=== PATIENT | male | born 1990 | race Caucasian/White ===

== ENCOUNTER 2016-07-27 23:11 | Emergency (ER) | payer SELFPAY ==
[~2016-07-27] VITALS: Ht 175.3 cm; Wt 63.5 kg
[~2016-07-27 23:11] MED LIST: AC500T; AMOX500C2 PO; BENADRYL; CEPH-38 PO; DEXT20TA8; DIPH50CA33; HYDR-1231 PO; HYDR1TAB PO; METH4TAB PO; NAPR500T PO; NAPR550T PO; PRD20T PO; TRM50T PO
[2016-07-27] MEDS ORDERED: BENZ-13 PO (23:56)
[2016-07-27] MEDS ORDERED: OSLT75C PO (23:56)
--- NOTE | 2016-07-27 23:56 | ED Cough/URI ---
General Chief Complaint: Cough/Cold/Flu Symptoms Stated Complaint: FEVER,VOMITING,COUGH Nursing Triage Note: c/o cough and congestion with fever x 2 days Source: patient History of Present Illness Time seen by provider: 23:25 Initial Comments PT STATES HE HAS BEEN SICK SINCE YESTERDAY HAS HAD FEVER OF 102.9 C/O NON-PRODUCTIVE COUGH, AND CLEAR NASAL DRAINAGE C/O HEADACHE C/O BODY ACHES HAS VOMITED X 2 SECONDARY TO COUGHING AND GAGGING TOOK OTC COLD/FLU MEDICATION AND 800 MG OF IBUPROFEN JUST PRIOR TO ARRIVAL AND STATES IT HAS HELPED MULTIPLE SICK CONTACTS WITH SAME--STATES KIDS ALL HAVE "BRONCHITIS OR PNEUMONIA " AND URI SYMPTOMS PCP: [facility] Allergies and Home Medications Allergies Coded Allergies: No Known Allergies (Unverified Allergy, Mild, 10/30/08) No Known Drug Allergies (Unverified Allergy, Mild, 11/09/08) Home Medications Benzonatate 100 Mg Capsule #30 1-2 TAB PO TID Prescribed by: NATASHA CASTILLO on 07/27/166 Dextroamphetamine/Amphetamine 20 Mg Tablet #60 (Reported) Naproxen 500 Mg Tablet #20 500 MG PO BID PRN PRN PAIN Prescribed by: SILVIA PANDEY on 03/21/16 1950 Oseltamivir Phosphate 75 Mg Cap #10 75 MG PO BID Prescribed by: NATASHA CASTILLO on 07/27/162355 Constitutional: see HPI fever malaise EENTM: nose congestion see HPI Respiratory: see HPI coughNo short of breath, No wheezing Cardiovascular: no symptoms reported Gastrointestinal: see HPINo abdominal pain, No diarrhea, No nausea, vomiting Genitourinary: no symptoms reported Musculoskeletal: see HPI (BODY ACHES) Skin: no symptoms reported Psychiatric/Neurological: See HPI Headache Hematologic/Lymphatic: No Symptoms Reported Immunological/Allergic: no symptoms reported Past Zvgimvj-Geprcm-Vzcxfx Hx Patient Social History Alcohol Use: Occasionally Uses Recreational Drug Use: No Smoking Status: Current Everyday Smoker (1 PPD) Type Used: Cigarettes Recent Foreign Travel: No Contact w/Someone Who Travel: No Recent Infectious Disease Expo: No Recent Hopitalizations: No Physical Abuse Screen: No Sexual Abuse: No Immunizations Up To Date Tetanus Booster (TDap): Unknown Date of Influenza Vaccine: May 24, 2013 Seasonal Allergies Seasonal Allergies: No Surgeries HX Surgeries: No Respiratory Hx Respiratory Disorders: No Cardiovascular Hx Cardiac Disorders: No Neurological Hx Neurological Disorders: No Reproductive System Hx Reproductive Disorders: No Sexually Transmitted Disease: No HIV/AIDS: No Genitourinary Hx Genitourinary Disorders: No Gastrointestinal Hx Gastrointestinal Disorders: No Musculoskeletal Hx Musculoskeletal Disorders: Yes Musculoskeletal Disorders: Chronic Back Pain Endocrine Hx Endocrine Disorders: No HEENT HX ENT Disorders: No Cancer Hx Cancer: No Psychosocial Hx Psychiatric Problems: Yes (WAS ON CELEXA, BUT RAN OUT 2 WEEKS AGO, PER PT ON 07/27/16) Behavioral Health Disorders: Depression Integumentary HX Skin/Integumentary Disorder: No Blood Transfusions Hx Blood Disorders: No Adverse Reaction to a Blood Tr: No Physical Exam Vital Signs Vital Sign - Last 12Hours 07/27/16 07/27/16 23:21 23:30 Temp 98.8 Pulse 110 Resp 16 B/P 109/77 Pulse Ox 96 O2 Delivery Room Air Capillary Refill : Less Than 3 Seconds General Appearance: other (LOOKS MILDLY ILL) thin HEENT: PERRL/EOMI TMs normal pharynx normal other (NASAL MUCOSAL CONGESTION AND CLEAR RHINORRHEA. 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 no motor/sensory deficits alert normal mood/affect oriented x 3 Skin: normal color warm/dryNo rash, tattoos/piercings (MUJLTIPLE TATTOOS) Progress/Results/Core Measures Results/Orders Micro Results Microbiology 07/27/16 Influenza Types A,B Antigen (RADHA) - Final, Complete My Orders Orders-NATASHA CASTILLO DO Influenza A And B Antigens (07/27/16 23:29) Vital Signs/I&O Vital Sign - Last 12Hours 07/27/16 07/27/16 07/28/16 23:21 23:30 00:06 Temp 98.8 Pulse 110 83 Resp 16 20 B/P 109/77 Pulse Ox 96 95 O2 Delivery Room Air Blood Pressure Mean: 88 Departure Impression Impression: Primary Impression: Influenza A Disposition: 01 HOME, SELF-CARE Condition: Improved Departure-Patient Inst. [facility]) Primary Care Physician Patient Instructions: Flu, Adult (DC) Add. Discharge Instructions: NIRMALA BAGLEY FOR COUGH TYLENOL 1 GRAM /MOTRIN 800 MG 4 TIMES A DAY NEEDED FOR PAIN OR FEVER FOLLOW UP WITH DR OF CHOICE IN 4-5 DAYS IF NO BETTER All discharge instructions reviewed with patient and/or family. Voiced understanding. Scripts Benzonatate (Tessalon Perle)100 Mg Capsule1-2 Tab PO TID Cough #30 CAP Prov:NATASHA CASTILLO DO 07/27/16 Oseltamivir Phosphate (Tamiflu)75 Mg Cap75 Mg PO BID #10 CAP Prov:NATASHA CASTILLO DO 07/27/16 Work/School Note: Work Release Form Date Seen in the Emergency Department: Jul 27, 2016 Return to Work: Jul 30, 2016 NATASHA CASTILLO DO Jul 27, 2016 23:56
[2016-07-28 00:06] VITALS: BP 112/79
== END 2016-07-28 00:07 | disposition home or self-care (01) ==
LOC: EDUNIT# 23:11 → ER 23:15
DX: J09.X2 Influenza due to identified novel influenza A virus with other respiratory manifestations (principal); F17.210 Nicotine dependence, cigarettes, uncomplicated
CPT/HCPCS: 87804; 99282

== ENCOUNTER 2016-10-26 03:17 | Emergency (ER) | payer SELFPAY ==
[~2016-10-26] VITALS: Ht 175.3 cm; Wt 63.5 kg
[~2016-10-26 03:17] MED LIST changes: +BENZ-13 PO; +OSLT75C PO
[2016-10-26] MEDS ORDERED: ibuprofen (03:31)
[2016-10-26] MEDS ORDERED: RX-NAPROXEN (NAPROSYN) 250 MG TAB PPK#4 PO STA (03:32)
[2016-10-26] MEDS ORDERED: LIDO15SO2 MM (03:35)
[2016-10-26] MEDS ORDERED: NAPR500T3 PO (03:35)
[2016-10-26] MEDS ORDERED: AMOX-358 PO (03:35)
--- NOTE | 2016-10-26 03:35 | ED EENT ---
History of Present Illness General Chief Complaint: Dental Problems/Pain Stated Complaint: DENTAL PAIN Nursing Triage Note: pt c/o left lower dental pain x 2 days, severe tonight. Source: patient History of Present Illness Time seen by provider: 03:25 Initial Comments C/O DENTAL PAIN FOR THE PAST COUPLE OF DAYS, WORSE TONIGHT PT HAS CHRONIC DENTAL PROBLEMS, HAS NOT SEEN A DENTIST IN YEARS DID GO TO [facility] A FEW YEARS AGO FOR THIS PROBLEM AND WAS REFERRED TO AN ORAL SURGEON TO HAVE TEETH REMOVED, BUT PT NEVER WENT DUE TO FINANCES. NO FEVER NO SWELLING OF FACE/JAW PCP; [facility] Allergies and Home Medications Allergies Coded Allergies: NKANo Known Allergies (Unverified Allergy, Mild, 10/30/08) No Known Drug Allergies (Unverified , 11/09/08) Home Medications Amoxicillin/Potassium Clav 1 Each Tablet, 1 EACH PO BID, #20 Prescribed by: NATASHA CASTILLO on 10/26/16 0335 Lidocaine HCl 15 Ml Solution, 0 MM Q 1-2 HOURS, #50 Prescribed by: NATASHA CASTILLO on 10/26/16 0335 Naproxen 500 Mg Tablet, 500 MG PO BID, #20 Prescribed by: NATASHA CASTILLO on 10/26/16 0335 [ibuprofen] , (Reported) Review of Systems Constitutional: no symptoms reported Eyes: No Symptoms Reported Ears: No Symptoms Reported Nose: no symptoms reported Mouth: see HPI Throat: no symptoms reported Respiratory: no symptoms reported Cardiovascular: no symptoms reported Gastrointestinal: no symptoms reported Musculoskeletal: no symptoms reported Skin: no symptoms reported Neurological: No Symptoms Reported Hematologic/Lymphatic: No Symptoms Reported Past Ppbtjan-Jjpcfu-Qxgotu Hx Patient Social History Alcohol Use: Occasionally Uses Recreational Drug Use: No Smoking Status: Current Everyday Smoker (1 PPD) Type Used: Cigarettes Recent Foreign Travel: No Contact w/Someone Who Travel: No Recent Infectious Disease Expo: No Recent Hopitalizations: No Immunizations Up To Date Tetanus Booster (TDap): Unknown Date of Influenza Vaccine: May 24, 2013 Seasonal Allergies Seasonal Allergies: No Surgeries HX Surgeries: No Respiratory Hx Respiratory Disorders: No Cardiovascular Hx Cardiac Disorders: No Neurological Hx Neurological Disorders: No Reproductive System Hx Reproductive Disorders: No Sexually Transmitted Disease: No HIV/AIDS: No Genitourinary Hx Genitourinary Disorders: No Gastrointestinal Hx Gastrointestinal Disorders: No Musculoskeletal Hx Musculoskeletal Disorders: Yes Musculoskeletal Disorders: Chronic Back Pain Endocrine Hx Endocrine Disorders: No HEENT HX ENT Disorders: Yes (DENTAL CARIES/ABSCESSES, CHRONIC DENTAL PAIN ) Cancer Hx Cancer: No Psychosocial Hx Psychiatric Problems: Yes Behavioral Health Disorders: Depression Integumentary HX Skin/Integumentary Disorder: No Blood Transfusions Hx Blood Disorders: No Adverse Reaction to a Blood Tr: No Physical Exam Vital Signs Vital Sign - Last 12Hours 10/26/16 03:24 Temp 96.9 Pulse 73 Resp 16 B/P (MAP) 160/105 General Appearance: WD/WN, no apparent distress, other (HOLDING LEFT JAW AREA) Eyes: bilateral eye EOMI, bilateral eye PERRL, bilateral eye normal inspection , bilateral eye other (GLASSES) Ears: bilateral ear TM normal Nose: normal inspection Mouth/Throat: other (EXTENSIVE DENTAL DECAY--MANY TEETH, ESPECIALLY ALL MOLARS , DECAYED DOWN TO GUMS--LEFT LOWER MOLARS WITH MODERATE SURROUNDING GUM TISSUE INFLAMED, SWOLLED AND VERY TENDER. NO MANDIBULAR SWELLING. 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, no motor/sensory deficits, alert, oriented x 3 Skin: normal color, warm/dry Progress/Results/Core Measures Results/Orders My Orders Orders - NATASHA CASTILLO DO Amoxicillin/Clavulanate Tablet (Augmenti (10/26/16 07:00) Rx-Naproxen (Rx-Naprosyn) (10/26/16 03:32) Lidocaine 2% Viscous 15 Ml (Xylocaine Vi (10/26/16 03:45) Vital Signs/I&O Vital Sign - Last 12Hours 10/26/16 03:24 Temp 96.9 Pulse 73 Resp 16 B/P (MAP) 160/105 Blood Pressure Mean: 123 Departure Impression Impression: Primary Impression: Dental caries Additional Impression: Dental abscess Disposition: 01 HOME, SELF-CARE Condition: Stable Departure-Patient Inst. Referrals: [facility] (PCP/Family) Primary Care Physician Patient Instructions: Tooth Decay, Adult (DC), Tooth Abscess (DC) Add. Discharge Instructions: FREQUENT SALT WATER AND LISTERINE SWISHES FOLLOW UP WITH [facility] THIS WEEK FOR FURTHER CARE All discharge instructions reviewed with patient and/or family. Voiced understanding. Scripts Naproxen (Naproxen) 500 Mg Tablet 500 MG PO BID, #20 TAB Prov: NATASHA CASTILLO DO 10/26/16 Lidocaine HCl (Lidocaine HCl Viscous) 15 Ml Solution 0 MM Q 1-2 HOURS for Pain, #50 EA Prov: NATASHA CASTILLO DO 10/26/16 Amoxicillin/Potassium Clav (Augmentin 875-125 Tablet) 1 Each Tablet 1 EACH PO BID for INFECTION, #20 TAB Prov: NATASHA CASTILLO DO 10/26/16 NATASHA CASTILLO DO Oct 26, 2016 03:35
[2016-10-26] MEDS ORDERED: AUGMENTIN 875 MG TAB (AMOXICILLIN/CLAVULANATE) ONE (03:38)
[2016-10-26] MEDS ORDERED: NAPROXEN 250 MG (NAPROSYN) TABLET PO ONE (03:45)
[2016-10-26] MEDS ORDERED: LIDOCAINE 2% VISCOUS 15 ML UDC PO ONE (03:45)
[2016-10-26 03:55] VITALS: BP 154/96
[2016-10-26] MEDS ORDERED: AUGMENTIN 875 MG TAB (AMOXICILLIN/CLAVULANATE) PO SCH (07:00)
== END 2016-10-26 03:55 | disposition home or self-care (01) ==
LOC: EDUNIT# 03:17 → ER 03:20
DX: K04.7 Periapical abscess without sinus (principal); K02.9 Dental caries, unspecified; F17.210 Nicotine dependence, cigarettes, uncomplicated
CPT/HCPCS: 99282

== ENCOUNTER 2017-08-16 01:31 | Emergency (ER) | payer OTHER ==
[~2017-08-16] VITALS: Ht 175.3 cm; Wt 63.5 kg
[~2017-08-16 01:31] MED LIST changes: +AMOX-358 PO; +LIDO15SO2 MM; +NAPR-1071 PO; -NAPR500T PO; +NAPR500T4 PO; +ibuprofen
[2017-08-16] MEDS ORDERED: LIDOCAINE 2% VISCOUS 15 ML UDC ONE (02:24)
[2017-08-16] MEDS ORDERED: HYDROcodone/APAP 7.5 MG/325 MG (LORTAB, LORCET PLUS) TABLET PO STA (02:27)
[2017-08-16] MEDS ORDERED: AUGMENTIN 875 MG TAB (AMOXICILLIN/CLAVULANATE) PO STA (02:27)
[2017-08-16] MEDS ORDERED: LIDOCAINE 2% VISCOUS 15 ML UDC PO ONE (02:30)
--- NOTE | 2017-08-16 02:35 | ED EENT ---
History of Present Illness General Chief Complaint: Dental Problems/Pain Stated Complaint: DENTAL PAIN Nursing Triage Note: PT TO ED 5 W/ C/O DENTAL PAIN, CHRONIC, WORSE LAST NOC. Source: patient Exam Limitations: no limitations History of Present Illness Date Seen by Provider: Aug 16, 2017 Time Seen by Provider: 02:14 Initial Comments Here with report of dental pain that has been going on over the last 24 hours. States it feels like last year in October when he had the same. At that time he was prescribed Augmentin and that didn't help. He knows he needs to follow with a dentist but has unfortunately been unable to due to finances. This has improved this year and he has insurance now and his tax returns or come in and so he scheduling with a dentist in [place]. He needs oral surgeon to remove multiple molars that are terribly decayed down to the gum lines on both upper and lower and bilateral. Timing/Duration: gradual Severity: moderate Location: dental Prearrival Treatment: over the counter meds Associated Symptoms: No cough, No nasal congestion/drainage, No sore throat, tooth pain Allergies and Home Medications Allergies Coded Allergies: NKANo Known Allergies (Unverified Allergy, Mild, 10/30/08) No Known Drug Allergies (Unverified , 11/09/08) Home Medications Amoxicillin/Potassium Clav 1 Each Tablet, 1 EACH PO BID, #20 Prescribed by: NATASHA CASTILLO on 10/26/16 0335 Lidocaine HCl 15 Ml Solution, 0 MM Q 1-2 HOURS, #50 Prescribed by: NATASHA CASTILLO on 10/26/16 0335 Naproxen 500 Mg Tablet, 500 MG PO BID, #20 Prescribed by: NATASHA CASTILLO on 10/26/16 0335 [ibuprofen] , (Reported) Review of Systems Constitutional: see HPI, No chills, No fever Ears: No Symptoms Reported Nose: no symptoms reported Mouth: see HPI, pain, denies purulent discharge Throat: no symptoms reported Respiratory: no symptoms reported Cardiovascular: no symptoms reported Skin: no symptoms reported Past Bjxehfc-Zbkada-Wztjcm Hx Patient Social History Alcohol Use: Occasionally Uses Recreational Drug Use: No Smoking Status: Current Everyday Smoker Type Used: Cigarettes Recent Foreign Travel: No Contact w/Someone Who Travel: No Recent Infectious Disease Expo: No Recent Hopitalizations: No Physical Abuse: No Sexual Abuse: No Mistreated: No Fear: No Immunizations Up To Date Tetanus Booster (TDap): Unknown Date of Influenza Vaccine: May 24, 2013 Seasonal Allergies Seasonal Allergies: No Surgeries History of Surgeries: No Respiratory History of Respiratory Disorde: No Cardiovascular History of Cardiac Disorders: No Neurological History of Neurological Disord: No Reproductive System Hx Reproductive Disorders: No Sexually Transmitted Disease: No HIV/AIDS: No Gastrointestinal History of Gastrointestinal Di: No Musculoskeletal History of Musculoskeletal Dis: Yes Musculoskeletal Disorders: Chronic Back Pain Endocrine History of Endocrine Disorders: No Cancer History of Cancer: No Psychosocial History of Psychiatric Problem: Yes Behavioral Health Disorders: Depression Suicide Risk Score: 0 Integumentary History of Skin or Integumenta: No Blood Transfusions History of Blood Disorders: No Adverse Reaction to a Blood Tr: No Reviewed Nursing Assessment Reviewed/Agree w Nursing PMH: Yes Family Medical History Significant Family History: No Pertinent Family Hx Physical Exam Vital Signs Vital Sign - Last 12Hours 08/16/17 02:06 Temp 98.1 Pulse 88 Resp 20 B/P (MAP) 138/82 (100) Pulse Ox 99 O2 Delivery Room Air General Appearance: WD/WN, no apparent distress Eyes: bilateral eye normal inspection, bilateral eye PERRL, bilateral eye EOMI Ears: bilateral ear auricle normal, bilateral ear canal normal, bilateral ear TM normal Nose: normal inspection Mouth/Throat: dental tenderness, other (bilateral upper and lower posterior teeth including all molars significantly decayed with mild erythema on the gum line around those teeth. No significant abscess noted.) Neck: full range of motion, supple Cardiovascular: regular rate, rhythm, no murmur Respiratory: lungs clear, normal breath sounds Neurologic/Psychiatric: alert, oriented x 3 Skin: normal color, warm/dry Progress/Results/Core Measures Results/Orders My Orders Orders - SUSAN INFANTE MD Lidocaine 2% Viscous 15 Ml (Xylocaine Vi (08/16/17 02:24) Hydrocodone/Apap 7.5/325 Tab (Lortab 7. (08/16/17 02:27) Augmentin 875mg Po (08/16/17 02:27) Lidocaine 2% Viscous 15 Ml (Xylocaine Vi (08/16/17 02:30) Vital Signs/I&O Vital Sign - Last 12Hours 08/16/17 02:06 Temp 98.1 Pulse 88 Resp 20 B/P (MAP) 138/82 (100) Pulse Ox 99 O2 Delivery Room Air Blood Pressure Mean: 100 Progress Note : Progress Note Seen and evaluated. Hydrocodone 7.5/325 one tab by mouth. I decayed mixture given. Augmentin 875 mg by mouth initiated. Discharged home with return precautions. Patient verbalize understanding instructions and agreement with plan. Departure Impression Impression: Primary Impression: Dental caries Disposition: 01 HOME, SELF-CARE Condition: Stable Departure-Patient Inst. Decision time for Depature: 02:33 Referrals: [facility] (PCP/Family) Primary Care Physician Patient Instructions: Tooth Decay, Adult (DC), Dental Pain (DC) Add. Discharge Instructions: All discharge instructions reviewed with patient and/or family. Voiced understanding. It is very important that he follow-up with a dentist/oral surgeon of your choosing as soon as possible. Take medications as directed. You may use the lidocaine mixture 2-3 times per hour as needed. Try not to swallow the solution. Return for worse pain, fever, vomiting, weakness, breathing problems or other concerns as needed. Drink plenty of fluids. You may take ibuprofen 800 mg every 8 hours as needed for pain. You may take Tylenol or the generic acetaminophen, 1000 mg every 8 hours as needed for pain if you're not taking the prescribed pain medicine as they both have acetaminophen in them. Scripts Chlorhexidine Gluconate (Chlorhexidine Gluconate) 473 Ml Mouthwash 15 ML MM BID, #473 ML swish and spit solution Prov: SUSAN INFANTE MD 08/16/17 Hydrocodone Bit/Acetaminophen (Hydrocodone/Acetaminophen 5/325mg Tablet) 1 Tab Tab 1-2 EACH PO Q6H Y for PAIN-MODERATE, #15 TAB 0 Refills Prov: SUSAN INFANTE MD 08/16/17 Amoxicillin/Potassium Clav (Amoxicillin-Clav ER 1,000-62.5) 1 Each Tab.er.12h 1 EACH PO BID, #14 TAB Prov: SUSAN INFANTE MD 08/16/17 SUSAN INFANTE MD Aug 16, 2017 02:35
[2017-08-16] MEDS ORDERED: CHLO473M MM (02:40)
[2017-08-16] MEDS ORDERED: AMOX1TAB39 PO (02:40)
[2017-08-16] MEDS ORDERED: ACHD5005 PO (02:40)
[2017-08-16 02:47] VITALS: BP 0/0
== END 2017-08-16 02:47 | disposition home or self-care (01) ==
LOC: EDUNIT# 01:31 → ER 01:34
DX: K02.9 Dental caries, unspecified (principal); F32.9 Major depressive disorder, single episode, unspecified; F17.210 Nicotine dependence, cigarettes, uncomplicated
CPT/HCPCS: 99283

== ENCOUNTER 2019-03-01 07:56 | Emergency (ER) | payer SELFPAY ==
[~2019-03-01] VITALS: Ht 175.3 cm; Wt 63.5 kg
[~2019-03-01 07:56] MED LIST changes: +ACHD5005 PO; +AMOX1TAB39 PO; -BENZ-13 PO; +BENZ100C18 PO; +CHLO473M MM; +NAPR-915 PO; -NAPR500T4 PO
--- NOTE | 2019-03-01 08:30 | ED EENT ---
History of Present Illness General Chief Complaint: Dental Problems/Pain Stated Complaint: DENTAL PAIN Nursing Triage Note: PT PRESENTS TO ED WITH COMPLAINTS OF R SIDED DENTAL PAIN X 2 DAYS. (ADEN ALONZO) Source: patient Exam Limitations: no limitations (YEIMY SIMON MD) History of Present Illness Initial Comments A 28 yo male presents to the ER complaining of toothache. Patient states that he needs to get a tooth extraction, but he has been unable to do so and now believes his tooth is infected. The pain is most significant at his lower second molar and describes the pain as sharp and constant. The pain began about two days ago, but there has been no drainage and no pus. He also denies any fevers and chills, but does complain of some nausea. He has had trouble eating and drinking. Ibuprofen has helped with the pain. (ADEN ALONZO) Date Seen by Provider: Mar 01, 2019 Time Seen by Provider: 08:10 (YEIMY SIMON MD) Allergies and Home Medications Allergies Coded Allergies: NKANo Known Allergies (Unverified Allergy, Mild, 10/30/08) No Known Drug Allergies (Unverified , 11/09/08) Home Medications Amoxicillin 500 Mg Capsule, 500 MG PO TID Prescribed by: AKILA ROSENTHAL on 03/06/18 0040 Amoxicillin 500 Mg Capsule, 1,000 MG PO BID Prescribed by: YEIMY DUMAS on 03/01/19 0836 Amoxicillin/Potassium Clav 1 Each Tablet, 1 EACH PO BID Prescribed by: NATASHA CASTILLO on 10/26/16 0335 Amoxicillin/Potassium Clav 1 Each Tab.er.12h, 1 EACH PO BID Prescribed by: SUSAN INFANTE on 08/16/17 0240 Chlorhexidine Gluconate 473 Ml Mouthwash, 15 ML MM BID swish and spit solution Prescribed by: SUSAN INFANTE on 08/16/17 0240 Chlorhexidine Gluconate 473 Ml Mouthwash, 15 ML MM BID Prescribed by: AKILA ROSENTHAL on 03/06/18 0042 Hydrocodone Bit/Acetaminophen 1 Tab Tab, 1-2 EACH PO Q6H PRN for PAIN-MODERATE Prescribed by: SUSAN INFANTE on 08/16/17 0240 Hydrocodone Bit/Acetaminophen 1 Tab Tab, 1 EACH PO Q4-6HR PRN for PAIN-MODERATE Prescribed by: YEIMY DUMAS on 03/01/19 0836 Lidocaine HCl 15 Ml Solution, 0 MM Q 1-2 HOURS Prescribed by: NATASHA CASTILLO on 10/26/16 0335 Naproxen 500 Mg Tablet, 500 MG PO BID Prescribed by: NATASHA CASTILLO on 10/26/16 033 Patient Home Medication List Home Medication List Reviewed: Yes (YEIMY SIMON MD) Review of Systems Review of Systems Constitutional: No chills, No fever Mouth: pain, swelling; denies bloody discharge, denies clear discharge, denies purulent discharge Throat: denies pain, denies hoarse Gastrointestinal: loss of appetite, nausea; No vomiting (ADEN ALONZO) Past Qbljcqg-Fmckcl-Rabssf Hx Patient Social History Alcohol Use: Denies Use Recreational Drug Use: No (SMOKES 1/2 PPD) Smoking Status: Current Someday Smoker Type Used: Cigarettes Recent Foreign Travel: No Contact w/Someone Who Travel: No Recent Infectious Disease Expo: No Recent Hopitalizations: No Physical Abuse: No Sexual Abuse: No Mistreated: No Fear: No (ADEN ALONZO) Immunizations Up To Date Tetanus Booster (TDap): Unknown Date of Influenza Vaccine: May 24, 2013 (ADEN ALONZO) Seasonal Allergies Seasonal Allergies: No (ADEN ALONZO) Past Medical History Surgeries: No Respiratory: No Cardiac: No Neurological: No Reproductive Disorders: No Sexually Transmitted Disease: No HIV/AIDS: No Genitourinary: No Gastrointestinal: No Musculoskeletal: Yes Chronic Back Pain Endocrine: No Cancer: No Psychosocial: Yes Depression Integumentary: No Blood Disorders: No Adverse Reaction/Blood Tranf: No (ADEN ALONZO) Family Medical History No Pertinent Family Hx (ADEN ALONZO) Physical Exam Vital Signs Vital Signs - First Documented 03/01/19 08:04 Temp 98.4 Pulse 82 Resp 18 B/P (MAP) 157/97 (117) Pulse Ox 99 (YEIMY SIMON MD) Height, Weight, BMI Height: 5'9.00" Weight: 140lbs. oz. 63.312554mu; 22.15 BMI Method:Stated General Appearance: WD/WN, mild distress Eyes: bilateral eye normal inspection Ears: bilateral ear auricle normal, bilateral ear canal normal, bilateral ear TM normal Mouth/Throat: pharynx normal, dental tenderness (Significant of the right lower mandible); No excessive drooling; mandibular swelling (On the Right), maxillary swelling (On the right); No tongue swollen, No uvula swelling, No voice changes; other (Purulent abscess on the Lower Right 2nd molar) Neck: non-tender, normal inspection; No lymphadenopathy (R), No lymphadenopathy (L) Cardiovascular: regular rate, rhythm, no edema, no gallop, no JVD, no murmur Respiratory: chest non-tender, lungs clear, normal breath sounds, no respirat ory distress, no accessory muscle use Neurologic/Psychiatric: alert, oriented x 3 Skin: normal color, warm/dry (ADEN ALONZO) Procedures/Interventions I&D : Blade Size: 11 Progress Topical anesthetic was provided with Hurricaine spray. A scalpel was then used to antonio the abscess resulting in significant drainage of purulent material which was cultured. (YEIMY SIMON MD) Progress/Results/Core Measures Results/Orders My Orders Orders - YEIMY SIMON MD Ondansetron Oral Dissolve Tab (Zofran (03/01/19 08:34) Hydrocodone/Apap 5/325 Tablet (Lortab 5 (03/01/19 09:00) Wound Culture (03/01/19 08:51) Ondansetron Oral Dissolve Tab (Zofran (03/01/19 09:00) (YEIMY SIMON MD) Medications Given in ED Current Medications Medications Dose Ordered Sig/Polo Route Start Time Stop Time Status Last Admin Dose Admin Acetaminophen/ Hydrocodone Bitart 1 tab ONCE ONCE PO 03/01/19 09:00 03/01/19 09:00 DC 03/01/19 08:53 1 TAB Ondansetron HCl 4 mg ONCE ONCE PO 03/01/19 09:00 03/01/19 09:01 DC 03/01/19 08:35 4 MG (YEIMY SIMON MD) Vital Signs/I&O 03/01/19 03/01/19 08:04 08:57 Temp 98.4 Pulse 82 80 Resp 18 16 B/P (MAP) 157/97 (117) 135/84 (101) Pulse Ox 99 98 (YEIMY SIMON MD) Blood Pressure Mean: 117 Progress Progress Note : Time: 09:06 Progress Note Impaction of the wisdom tooth causing infection of the right lower 2nd molar. Lack of adequate hygiene, resulting in increased risk of infection. Contacting dentist is recommended for appropriate dental care. Pain, Nausea, and possible infection was appropriately treated with medication. Recommended Dental Insurance for appropriate dental procedures needed. (ADEN ALONZO [facility]) Departure Impression Primary Impression: Dental abscess Additional Impressions: Dental decay Encounter for incision and drainage procedure Disposition: HOME, SELF-CARE Condition: Improved Departure-Patient Inst. Decision time for Depature: 08:30 (YEIMY SIMON MD) Referrals: [facility] (PCP/Family) Primary Care Physician Patient Instructions: Tooth Decay, Adult (DC), Tooth Abscess (DC) Add. Discharge Instructions: Complete your antibiotics as soon as possible. Follow-up with a dentist or oral surgeon for dental extraction as soon as possible. You may take ibuprofen up to 600 mg every 6 hours as needed for pain. Add either Tylenol (acetaminophen) up to 1000 mg every 6 hours as needed or hydrocodone as prescribed for additional pain control. Gently brush your teeth at least twice daily with a soft bristle toothbrush. Also use an antiseptic mouth wash twice daily if tolerated. Return to care if you have worsening symptoms, especially if you develop fevers over 100. All discharge instructions reviewed with patient and/or family. Voiced understan hannah. Scripts Hydrocodone Bit/Acetaminophen (Hydrocodone/Acetaminophen 5/325mg Tablet) 1 Tab Tab 1 EACH PO Q4-6HR PRN for PAIN-MODERATE MDD 10, #10 TAB Prov: YEIMY SIMON MD 03/01/19 Amoxicillin (Amoxicillin) 500 Mg Capsule 1000 MG PO BID, #40 CAP 0 Refills Prov: YEIMY SIMON MD 03/01/19 This patient was seen and examined by me along with Aden Alonzo, MS3, I agree with his history and physical. Patient presents with right-sided jaw pain due to poor dentition and dental decay. He tried taking ibuprofen which did not improve his pain. He has swelling along the jawline as well. He is nauseated but denies fever or chills. He has been able to eat and drink. He has been to a dentist previously and was referred to an oral surgeon for dental extractions. He has not yet pursued the extractions due to cost. He now presumes infection. Exam: HEENT: Tympanic membranes normal, oropharynx normal, there is a small bubbling abscess lateral to the right lower molars with localized associated erythema. There are several severely eroded teeth Neck: Normal to inspection, supple, no lymphadenopathy Heart: Regular rate and rhythm without murmur Lungs: clear to auscultation bilaterally Topical anesthesia with Hurricaine spray was applied to the abscess. It was then nicked with a scalpel and a significant amount of purulent material was drained. Patient was given hydrocodone for pain control. Wound culture was obtained. (YEIMY SIMON MD) ADEN ALONZO [facility] Mar 01, 2019 08:30 YEIMY SIMON MD Mar 01, 2019 08:31
[2019-03-01] MEDS ORDERED: ONDANSETRON 4 MG (ZOFRAN) ORAL DISSOLVE TAB ONE (08:34)
[2019-03-01] MEDS ORDERED: AMOX500C2 PO (08:36)
[2019-03-01] MEDS ORDERED: ACHD5005 PO (08:36)
[2019-03-01 08:57] VITALS: BP 135/84
[2019-03-01] MEDS ORDERED: ONDANSETRON 4 MG (ZOFRAN) ORAL DISSOLVE TAB PO ONE (09:00)
[2019-03-01] MEDS ORDERED: HYDROcodone/APAP 5 MG/325 MG (LORTAB) TAB PO ONE (09:00)
== END 2019-03-01 08:56 | disposition home or self-care (01) ==
LOC: EDUNIT# 07:56 → ER 07:57
DX: K04.7 Periapical abscess without sinus (principal); K02.9 Dental caries, unspecified; F32.9 Major depressive disorder, single episode, unspecified; F17.210 Nicotine dependence, cigarettes, uncomplicated
CPT/HCPCS: 41800; 87070; 87205

== ENCOUNTER 2020-12-23 11:28 | Emergency (ER) | payer BC ==
[~2020-12-23] VITALS: Ht 172.2 cm; Wt 67.0 kg
[~2020-12-23 11:28] MED LIST changes: -CHLO473M MM; -LIDO15SO2 MM; +LIDO20SO23 MM; +NFCHLORHGL MM
[2020-12-23 11:37] VITALS: BP 118/86
--- NOTE | 2020-12-23 11:52 | ED Integumentary General ---
General Stated Complaint: RASH Source: patient Exam Limitations: no limitations History of Present Illness Date Seen by Provider: Dec 23, 2020 Time Seen by Provider: 11:51 Initial Comments To ER with a single erythematous itchy bump to the lateral left ankle after being outside yesterday. Timing/Duration: yesterday Severity: mild Location: extremities Associated Symptoms: denies symptoms Allergies and Home Medications Allergies Coded Allergies: NKANo Known Allergies (Unverified Allergy, Mild, 10/30/08) No Known Drug Allergies (Unverified , 11/09/08) Home Medications Amoxicillin 500 Mg Capsule, 500 MG PO TID Prescribed by: AKILA ROSENTHAL on 03/06/18 0040 Amoxicillin 500 Mg Capsule, 1,000 MG PO BID Prescribed by: YEIMY DUMAS on 03/01/19 0836 Amoxicillin/Potassium Clav 1 Each Tablet, 1 EACH PO BID Prescribed by: NATASHA CASTILLO on 10/26/16 033 Amoxicillin/Potassium Clav 1 Each Tab.er.12h, 1 EACH PO BID Prescribed by: SUSAN INFANTE on 08/16/17 0240 Chlorhexidine Gluconate 473 Ml Mouthwash, 15 ML MM BID swish and spit solution Prescribed by: SUSAN INFANTE on 08/16/17 0240 Chlorhexidine Gluconate 473 Ml Mouthwash, 15 ML MM BID Prescribed by: AKILA ROSENTHAL on 03/06/18 0042 Hydrocodone Bit/Acetaminophen 1 Tab Tab, 1-2 EACH PO Q6H PRN for PAIN-MODERATE Prescribed by: SUSAN INFANTE on 08/16/17 0240 Hydrocodone Bit/Acetaminophen 1 Tab Tab, 1 EACH PO Q4-6HR PRN for PAIN-MODERATE Prescribed by: YEIMY DUMAS on 03/01/19 0836 Lidocaine HCl 15 Ml Solution, 0 MM Q 1-2 HOURS Prescribed by: NATASHA CASTILLO on 10/26/16 033 Naproxen 500 Mg Tablet, 500 MG PO BID Prescribed by: NATASHA CASTILLO on 10/26/16 033 Patient Home Medication List Home Medication List Reviewed: Yes Review of Systems Review of Systems Constitutional: see HPI EENTM: see HPI Respiratory: no symptoms reported Cardiovascular: no symptoms reported Genitourinary: no symptoms reported Musculoskeletal: no symptoms reported Skin: see HPI Psychiatric/Neurological: No Symptoms Reported Endocrine: No Symptoms Reported Past Avjslbf-Yylqly-Mbdpql Hx Patient Social History Type Used: Cigarettes Recent Hopitalizations: No Immunizations Up To Date Tetanus Booster (TDap): Unknown Date of Influenza Vaccine: May 24, 2013 Seasonal Allergies Seasonal Allergies: No Past Medical History Surgeries: No Respiratory: No Cardiac: No Neurological: No Reproductive Disorders: No Sexually Transmitted Disease: No HIV/AIDS: No Genitourinary: No Gastrointestinal: No Musculoskeletal: Yes Chronic Back Pain Endocrine: No Cancer: No Psychosocial: Yes Depression Integumentary: No Blood Disorders: No Adverse Reaction/Blood Tranf: No Family Medical History No Pertinent Family Hx Physical Exam Vital Signs Capillary Refill : General Appearance: WD/WN, no apparent distress Neck: non-tender, full range of motion Respiratory: no respiratory distress, no accessory muscle use Neurologic/Psychiatric: alert, normal mood/affect, oriented x 3 Skin: normal color, warm/dry Skin Problem Character: rash Departure Impression Primary Impression: Insect bite Disposition: 01 HOME, SELF-CARE Condition: Stable Departure-Patient Inst. Decision time for Depature: 11:53 Referrals: [facility] (PCP/Family) Primary Care Physician Patient Instructions: Insect Bites and Stings Add. Discharge Instructions: Apply the topical antiitch cream twice daily as needed Scripts Hydrocortisone/Aloe Vera (Hydrocortisone Plus 1% Cream) 28.4 Gm Cream..g. 2 GM TP BID PRN for ITCHING, #1 TUBE Prov: RACHEL VITALE CONCRETE PAVING SUPERVISOR 12/23/20 RACHEL VITALE CONCRETE PAVING SUPERVISOR Dec 23, 2020 11:52
[2020-12-23] MEDS ORDERED: HYDR28.480 TP (11:54)
== END 2020-12-23 12:09 | disposition home or self-care (01) ==
LOC: EDUNIT# 11:28 → ER 11:29
DX: S90.562A Insect bite (nonvenomous), left ankle, initial encounter (principal); G89.29 Other chronic pain; M54.9 Dorsalgia, unspecified; Z79.891 Long term (current) use of opiate analgesic; W57.XXXA Bitten or stung by nonvenomous insect and other nonvenomous arthropods, initial encounter
CPT/HCPCS: 99282

== ENCOUNTER 2021-01-09 22:14 | Emergency (ER) | payer BC ==
[~2021-01-09] VITALS: Ht 175 cm; Wt 67.0 kg
[~2021-01-09 22:14] MED LIST changes: +HYDR28.480 TP
[2021-01-10] MEDS ORDERED: RX-NAPROXEN (NAPROSYN) 250 MG TAB PPK#4 PO STA (01:26)
[2021-01-10] MEDS ORDERED: LIDOCAINE 2% VISCOUS 15 ML UDC PO ONE (01:30)
[2021-01-10] MEDS ORDERED: CLINDAMYCIN 150 MG (CLEOCIN) CAP PO ONE (01:30)
[2021-01-10] MEDS ORDERED: NAPR-1071 PO (01:32)
[2021-01-10] MEDS ORDERED: NFCHLORHGL MM (01:32)
[2021-01-10] MEDS ORDERED: CLIN150C18 PO (01:32)
--- NOTE | 2021-01-10 01:32 | ED EENT ---
History of Present Illness General Chief Complaint: Dental Problems/Pain Stated Complaint: ABCESS TOOTH Nursing Triage Note: DENTAL PAIN X3 DAYS. Source: patient Exam Limitations: no limitations History of Present Illness Date Seen by Provider: Jan 10, 2021 Time Seen by Provider: 01:18 Initial Comments Patient to the ER by private conveyance from home with chief complaint of 3 to 4 days progressively worsening left lower and upper dental pain. He has an appointment later in the month at [place] to have the teeth extracted. In the past he is used clindamycin successfully to treat his dental pain. He says the viscous lidocaine does not help much. He has been using Tylenol and ibuprofen with his last dose being earlier yesterday morning. He says it does dull the pain. No fevers or chills difficulty swallowing or vocal changes. Allergies and Home Medications Allergies Coded Allergies: ZELALEMANo Known Allergies (Unverified Allergy, Mild, 10/30/08) No Known Drug Allergies (Unverified , 11/09/08) Home Medications Amoxicillin 500 Mg Capsule, 500 MG PO TID Prescribed by: AKILA ROSENTHAL on 03/06/18 004 Amoxicillin 500 Mg Capsule, 1,000 MG PO BID Prescribed by: YEIMY DUMAS on 03/01/19 0836 Amoxicillin/Potassium Clav 1 Each Tablet, 1 EACH PO BID Prescribed by: NATASHA CASTILLO on 10/26/16 0335 Amoxicillin/Potassium Clav 1 Each Tab.er.12h, 1 EACH PO BID Prescribed by: SUSAN INFANTE on 08/16/17 0240 Chlorhexidine Gluconate 473 Ml Mouthwash, 15 ML MM BID swish and spit solution Prescribed by: SUSAN INFANTE on 08/16/17 0240 Chlorhexidine Gluconate 473 Ml Mouthwash, 15 ML MM BID Prescribed by: AKILA ROSENTHAL on 03/06/18 0042 Chlorhexidine Gluconate 473 Ml Mouthwash, 30 ML MM BID Prescribed by: AKILA ROSENTHAL on 01/10/21 013 Clindamycin HCl 150 Mg Capsule, 450 MG PO TID Prescribed by: AKILA ROSENTHAL on 01/10/21 013 Hydrocodone Bit/Acetaminophen 1 Tab Tab, 1-2 EACH PO Q6H PRN for PAIN-MODERATE Prescribed by: SUSAN INFANTE on 08/16/17 0240 Hydrocodone Bit/Acetaminophen 1 Tab Tab, 1 EACH PO Q4-6HR PRN for PAIN-MODERATE Prescribed by: YEIMY DUMAS on 03/01/19 0836 Hydrocortisone/Aloe Vera 28.4 Gm Cream..g., 2 GM TP BID PRN for ITCHING Prescribed by: RACHEL VITALE on 12/23/20 1154 Lidocaine HCl 15 Ml Solution, 0 MM Q 1-2 HOURS Prescribed by: NTAASHA CASTILLO on 10/26/16 0335 Naproxen 500 Mg Tablet, 500 MG PO BID Prescribed by: NATASHA CASTILLO on 10/26/16 033 Naproxen 500 Mg Tablet, 500 MG PO BID Prescribed by: AKILA ROSENTHAL on 01/10/21 0132 Patient Home Medication List Home Medication List Reviewed: Yes Review of Systems Review of Systems Constitutional: No chills, No diaphoresis Eyes: Denies Blindness, Denies Blurred Vision Ears: Denies Dizziness, Denies Pain Nose: denies clots, denies congestion Mouth: denies pain, denies swelling Throat: denies pain, denies swelling Respiratory: No cough, No phlegm Cardiovascular: No chest pain, No palpitations Gastrointestinal: No abdominal pain, No nausea All Other Systems Reviewed Negative Unless Noted: Yes Past Vuyucrr-Nzomqi-Hmdosj Hx Patient Social History Tobacco Use?: No Use of E-Cig and/or Vaping dev: No Substance use?: No Alcohol Use?: No Immunizations Up To Date Tetanus Booster (TDap): Unknown Seasonal Allergies Seasonal Allergies: No Past Medical History Surgeries: No Respiratory: No Cardiac: No Neurological: No Reproductive Disorders: No Sexually Transmitted Disease: No HIV/AIDS: No Genitourinary: No Gastrointestinal: No Musculoskeletal: Yes Chronic Back Pain Endocrine: No Cancer: No Psychosocial: Yes Depression Integumentary: No Blood Disorders: No Adverse Reaction/Blood Tranf: No Family Medical History No Pertinent Family Hx Physical Exam Vital Signs Vital Signs - First Documented 01/09/21 23:28 Temp 36.9 Pulse 66 Resp 16 B/P (MAP) 163/87 (112) Pulse Ox 100 O2 Delivery Room Air Height, Weight, BMI Height: 5'9.00" Weight: 140lbs. oz. 63.144056gp; 21.00 BMI Method:Stated General Appearance: WD/WN, mild distress Eyes: bilateral eye normal inspection, bilateral eye PERRL, bilateral eye EOMI Ears: bilateral ear auricle normal, bilateral ear canal normal Nose: normal inspection; No active bleeding, No discharge Mouth/Throat: other (Advanced dental caries, gingivitis but no pointing or obvious externalization of abscess) Neck: non-tender, full range of motion, supple, normal inspection Cardiovascular: normal peripheral pulses, regular rate, rhythm Respiratory: no respiratory distress, no accessory muscle use Neurologic/Psychiatric: alert, normal mood/affect, oriented x 3 Progress/Results/Core Measures Results/Orders My Orders Orders - AKILA ROSENTHAL Rx-Naproxen (Rx-Naprosyn) (01/10/21 01:26) Lidocaine 2% Viscous 15 Ml (Xylocaine Vi (01/10/21 01:30) Clindamycin Capsule (Cleocin Capsule) (01/10/21 01:30) Medications Given in ED Current Medications Medications Dose Ordered Sig/Polo Route Start Time Stop Time Status Last Admin Dose Admin Clindamycin HCl 450 mg ONCE ONCE PO 01/10/21 01:30 01/10/21 01:31 DC 01/10/21 01:38 450 MG Lidocaine HCl 5 ml ONCE ONCE PO 01/10/21 01:30 01/10/21 01:31 DC 01/10/21 01:38 5 ML Vital Signs/I&O 01/09/21 01/10/21 23:28 01:45 Temp 36.9 36.9 Pulse 66 71 Resp 16 16 B/P (MAP) 163/87 (112) 145/78 (112) Pulse Ox 100 100 O2 Delivery Room Air Room Air Blood Pressure Mean: 112 Progress Progress Note : Time: 01:28 Progress Note Clindamycin, viscous lidocaine, naproxen. Magic mouthwash The patient declined any IM medicines or inferior alveolar nerve block as he did not like needles. Departure Impression Primary Impression: Dental abscess Disposition: HOME, SELF-CARE Condition: Stable Departure-Patient Inst. Decision time for Depature: 01:28 Referrals: [facility] (PCP/Family) Primary Care Physician Patient Instructions: Tooth Abscess (DC) Add. Discharge Instructions: Magic mouthwash 1 ounce twice daily for the next week. Naproxen 500 mg twice a day for pain. Tylenol 1000 mg every 8 hours as necessary for pain. Do not use ibuprofen with naproxen. Viscous lidocaine applied to gauze placed over the teeth every 4 hours as necessary for the dental pain. Clindamycin 3 capsules 3 times a day for the next week. All discharge instructions reviewed with patient and/or family. Voiced understanding. Scripts Naproxen (Naprosyn) 500 Mg Tablet 500 MG PO BID for 14 Days, #30 TAB 0 Refills Prov: AKILA ROSENTHAL 01/10/21 Chlorhexidine Gluconate (Chlorhexidine Gluconate) 473 Ml Mouthwash 30 ML MM BID for 7 Days, #473 ML 0 Refills Prov: AKILA ROSENTHAL 01/10/21 Clindamycin HCl (Clindamycin HCl) 150 Mg Capsule 450 MG PO TID for 7 Days, #63 CAP 0 Refills Prov: AKILA ROSENTHAL 01/10/21 AKILA ROSENTHAL Jan 10, 2021 01:32
[2021-01-10 01:45] VITALS: BP 145/78
== END 2021-01-10 01:45 | disposition home or self-care (01) ==
LOC: EDUNIT# 22:14 → ER 22:15
DX: K04.7 Periapical abscess without sinus (principal); G89.29 Other chronic pain; M54.9 Dorsalgia, unspecified; Z79.891 Long term (current) use of opiate analgesic; Z79.899 Other long term (current) drug therapy
CPT/HCPCS: 99283